=== PATIENT | male | born 1985 | race Caucasian/White ===

== ENCOUNTER 2017-10-10 11:06 | Outpatient (RCR) | payer BC | END 2018-01-08 | disposition home or self-care (01) | LOC: WSST | DX: R13.12 Dysphagia, oropharyngeal phase (principal); H74.03 Tympanosclerosis, bilateral ==

== ENCOUNTER → 2017-11-07 | Outpatient (CLI) | payer BC | LOC: COL.RAD 08:25 | DX: R13.10 Dysphagia, unspecified (principal) ==